=== PATIENT | female | born 1935 | race Caucasian/White ===

== ENCOUNTER 2016-06-22 18:24 | Emergency (ER) | payer MEDICARE, MEDICAID ==
[~2016-06-22] VITALS: Ht 162.6 cm; Wt 58.5 kg
[~2016-06-22 18:24] MED LIST: COLACE100 M1 PO; COZAAR25 MG PO; GLUCOTROL5 MG PO; NEURONTIN100 MG PO; NORCO 5/325 MG1 TAB PO; ORETIC25 MG PO; PRAVACHOL10 MG PO; VALIUM2 M1 PO
[2016-06-22 18:42] VITALS: BP 134/70
--- NOTE | 2016-06-22 18:51 | NUR ---
SEEN BY DR. CAH. TO [facility]PRE[facility] PER ERMD
--- NOTE | 2016-06-22 18:59 | NUR ---
[place] PD WITH PATIENT
--- NOTE | 2016-06-22 20:00 | NUR ---
BIB WHEELCHAIR TO ER OF1
--- NOTE | 2016-06-22 20:11 | NUR ---
Patient being evaluated by physician.
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
--- NOTE | 2016-06-22 20:20 | NUR ---
Patient discharged with v/s stable. Written and verbal after care instructions given and explained. Patient alert, oriented and verbalized understanding of instructions. Wheel Chair Assisted with to car. All questions addressed prior to discharge. ID band removed. Patient advised to follow up with PMD. Rx of NAPROSYN 500 MG given. Patient educated on indication of medication including possible reaction and side effects. Opportunity to ask questions provided and answered. D/C BY DR. MARCUS.
[2016-06-22 20:21] VITALS: BP 132/71
[2016-09-06] MEDS ORDERED: MAXZIDE 25 MG-31 TA1 PO (11:38)
[2016-09-06] MEDS ORDERED: NEURONTIN100 M1 PO (11:38)
[2016-09-06] MEDS ORDERED: NORTRIPTYLINE H PO (11:38)
[2016-09-06] MEDS ORDERED: VALIUM2 MG PO (11:38)
[2016-09-06] MEDS ORDERED: PRAVACHOL PO (11:38)
[2016-09-06] MEDS ORDERED: COZAAR50 M1 PO (11:38)
[2016-09-06] MEDS ORDERED: D3-20002000 UNIT PO (11:38)
[2016-09-06] MEDS ORDERED: ZYLOPRIM100 M1 PO (11:38)
== END 2016-06-22 20:20 | disposition home or self-care (01) ==
LOC: MED 18:24
DX: S63.501A Unspecified sprain of right wrist, initial encounter (principal); S53.401A Unspecified sprain of right elbow, initial encounter; E11.9 Type 2 diabetes mellitus without complications; E78.00 Pure hypercholesterolemia, unspecified; I10 Essential (primary) hypertension; Z90.49 Acquired absence of other specified parts of digestive tract; V89.2XXA Person injured in unspecified motor-vehicle accident, traffic, initial encounter; Y93.89 Activity, other specified; Y92.89 Other specified places as the place of occurrence of the external cause; Y99.8 Other external cause status

== ENCOUNTER 2016-07-15 10:59 | Emergency (ER) | payer MEDICARE ==
[~2016-07-15] VITALS: Ht 160 cm; Wt 58.5 kg
[2016-07-15 11:22] VITALS: BP 106/60
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
--- NOTE | 2016-07-15 13:13 | NUR ---
PATIENT LEFT WITHOUT BEING SEEN BY THE ER DOCTOR
[2016-09-06] MEDS ORDERED: VALIUM2 MG PO (11:38)
[2016-09-06] MEDS ORDERED: ZYLOPRIM100 M1 PO (11:38)
[2016-09-06] MEDS ORDERED: COZAAR50 M1 PO (11:38)
[2016-09-06] MEDS ORDERED: D3-20002000 UNIT PO (11:38)
[2016-09-06] MEDS ORDERED: MAXZIDE 25 MG-31 TA1 PO (11:38)
[2016-09-06] MEDS ORDERED: PRAVACHOL PO (11:38)
[2016-09-06] MEDS ORDERED: NORTRIPTYLINE H PO (11:38)
[2016-09-06] MEDS ORDERED: NEURONTIN100 M1 PO (11:38)
== END 2016-07-15 13:13 | disposition left against medical advice (07) ==
LOC: MED 10:59
DX: M54.2 Cervicalgia (principal); Z53.21 Procedure and treatment not carried out due to patient leaving prior to being seen by health care provider

== ENCOUNTER 2016-08-05 09:00 | Emergency (ER) | payer MEDICARE, OTHER ==
[~2016-08-05] VITALS: Ht 160 cm; Wt 59.4 kg
[~2016-08-05 09:00] MED LIST changes: -COLACE100 M1 PO; -COZAAR25 MG PO; +DOCU-67 PO; +GLIP5TAB4 PO; -GLUCOTROL5 MG PO; +HYDR-4446 PO; -NEURONTIN100 MG PO; -NORCO 5/325 MG1 TAB PO; -ORETIC25 MG PO; -PRAVACHOL10 MG PO; -VALIUM2 M1 PO
[2016-08-05 09:28] VITALS: BP 123/66
--- NOTE | 2016-08-05 10:06 | NUR ---
Pt w/c assisted to bed 8.
--- NOTE | 2016-08-05 10:19 | NUR ---
L/S XR ORDERED BY JUSTINE
--- NOTE | 2016-08-05 10:20 | NUR ---
Patient taken to x-ray via w/c.
--- NOTE | 2016-08-05 10:39 | NUR ---
Patient returned from x-ray and placed back into bed 6.
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
--- NOTE | 2016-08-05 11:25 | NUR ---
Patient found trying to get out of bed. Pt states "I just want to go home. I will go see my own doctor." Patient instructed to not get out of bed. Pt insisting to get out bed. Side rails are up. Dr. Yeh made aware.
--- NOTE | 2016-08-05 11:30 | NUR ---
Patient being evaluated by Dr. Yeh at bedside.
[2016-08-05 11:40] VITALS: BP 167/79
--- NOTE | 2016-08-05 11:40 | NUR ---
Patient discharged with v/s stable. Written and verbal after care instructions given and explained. Patient verbalized understanding. Wheel Chair Assisted with to home. All questions addressed prior to discharge. Advised to follow up with PMD.
--- NOTE | 2016-08-05 11:40 | NUR ---
Chart checked and completed. The patient's care was reviewed and supervised by Donell Hammer RN.
== END 2016-08-05 11:40 | disposition home or self-care (01) ==
LOC: MED 09:00
DX: M54.5 Low back pain (principal); E11.9 Type 2 diabetes mellitus without complications; I10 Essential (primary) hypertension; E78.00 Pure hypercholesterolemia, unspecified; Z95.1 Presence of aortocoronary bypass graft; Z98.890 Other specified postprocedural states
CPT/HCPCS: 72110; 81002; 99284

== ENCOUNTER 2016-09-06 11:25 | Observation (INO) | payer MEDICARE, OTHER ==
[~2016-09-06] VITALS: Ht 160 cm; Wt 59.0 kg
--- NOTE | 2016-09-06 00:25 | NUR ---
VITAL SIGNS STABLE, NO SOB OR SIGN OF DISTRESS, BS CHECK 159, CALL LIGHT WITHIN REACH WILL CONTINUE TO MONITOR. Addendum: 09/07/16 at 0454 by Michelle Corona RN WRONG DATE 09/07/16 @0025
--- NOTE | 2016-09-06 11:25 | NUR ---
Patient BIBA ACLS, transferred to bed 3. RN evaluating patient at bedside.
[2016-09-06 11:28] VITALS: BP 165/85
--- NOTE | 2016-09-06 11:30 | NUR ---
PT BIBA FOR EVALUATION OF LOW BLOOD SUGAR. PER MEDIC PT BLOOD SUGAR AT HOME 42, IV STARTED AND 1 BAG D10 ADMINISTERED IN FIELD W/BLOOD SUGAR BACK UP TO 240. BLOOD SUGAR UPON ARRIVAL TO ER 174. HX DM, HTN, ANXIETY.DENIES N/V/D; SKIN IS PINK/WARM/DRY; AAOX4 WITH EVEN AND STEADY GAIT; LUNGS CLEAR BL; HR EVEN AND REGULAR; PT DENIES ANY FEVER, CP, SOB, OR COUGH AT THIS TIME; PATIENT STATES PAIN OF 0/10 AT THIS TIME; VSS; PATIENT POSITIONED FOR COMFORT; HOB ELEVATED; BEDRAILS UP X2; BED DOWN. ER MD MADE AWARE OF PT STATUS.
[2016-09-06] MEDS ORDERED: GABA100C PO (11:38)
[2016-09-06] MEDS ORDERED: [UNRECOGNIZED DRUG - CODE] PO (11:38)
[2016-09-06] MEDS ORDERED: [UNRECOGNIZED DRUG - CODE] PO (11:38)
[2016-09-06] MEDS ORDERED: NORT10CA PO (11:38)
[2016-09-06] MEDS ORDERED: ALLO100T21 PO (11:38)
[2016-09-06] MEDS ORDERED: PRAV10TA21 PO (11:38)
[2016-09-06] MEDS ORDERED: LOSA50TA1 PO (11:38)
[2016-09-06] MEDS ORDERED: DIAZ2TAB6 PO (11:38)
[2016-09-06 12:20] LABS: BASOPHILS # (AUTO) 0.1 K/uL (0.00-0.22); BASOPHILS % (AUTO) 0.9 % (0.0-2.0); EOSINOPHILS # (AUTO) 0.1 K/uL (0-0.4); EOSINOPHILS % (AUTO) 0.9 % (0.0-4.0); HEMATOCRIT 33.7 % (36-48); HEMOGLOBIN 11.3 g/dL (12.0-16.0); LYMPHOCYTES # (AUTO) 1.2 K/uL (2.5-16.5); LYMPHOCYTES % (AUTO) 16.4 % (20.5-51.1); MEAN CORPUSCULAR HEMOGLOBIN 31 pg (27-31); MEAN CORPUSCULAR HGB CONC 33 g/dL (33-37); MEAN CORPUSCULAR VOLUME 93 fL (80-94); MONOCYTES # (AUTO) 0.4 K/uL (0.8-1.0); NEUTROPHILS # (AUTO) 5.6 K/uL (1.8-7.7); NEUTROPHILS % (AUTO) 76.8 % (42.2-75.2); PLATELET COUNT (AUTO) 172 K/uL (140-450); RED BLOOD CELL COUNT(AUTO) 3.63 MIL/uL (4.20-5.40); RED CELL DISTRIBUTION WIDTH 12.2 % (11.6-13.7); WHITE BLOOD COUNT (AUTO) 7.4 K/uL (4.8-10.8)
[2016-09-06 12:44] LABS: ALANINE AMINOTRANSFERASE 25 U/L (12-78); ALBUMIN 3.9 g/dL (3.4-5.0); ALKALINE PHOSPHATASE 65 U/L (46-116); ASPARTATE AMINOTRANSFERASE 18 U/L (15-37); CALCIUM 9.3 mg/dL (8.5-10.1); CARBON DIOXIDE 27.9 mmol/L (21-32); CREATININE 1.4 mg/dL (0.6-1.3); GLUCOSE 108 mg/dL (74-106); TOTAL BILIRUBIN 0.3 mg/dL (0.0-1.0); TOTAL PROTEIN, SERUM 7.7 g/dL (6.4-8.2); UREA NITROGEN, BLOOD 47 mg/dL (7-18)
[2016-09-06 13:20] LABS: ANION GAP 12.7 (8-16); CHLORIDE 104 mmol/L (98-107); POTASSIUM 4.6 mmol/L (3.5-5.1); SODIUM SERUM 140 mmol/L (136-145)
--- NOTE | 2016-09-06 13:25 | NUR ---
PER FIRST COAT OPERATOR SHWETA AT BEDSIDE REQUESTED TO BE CALLED/NOTIFED WHEN THE PT WILL BE DC FOR PICKUP
[2016-09-06 13:27] LABS: APPEARANCE,URINE CLEAR (CLEAR); BILIRUBIN,URINE NEGATIVE (NEGATIVE); BLOOD, URINE TRACE-I (NEGATIVE); COLOR,URINE YELLOW (YELLOW); LEUKOCYTE ESTERASE ,URINE NEGATIVE (NEGATIVE); NITRITE, URINE NEGATIVE (NEGATIVE); PROTEIN,URINE NEGATIVE (NEGATIVE); UGLUCOSE NEGATIVE (NEGATIVE); UROBILINOGEN,URINE 0.2 EU/dL (0.2 - 1)
[2016-09-06 13:47] LABS: BACTERIA,URINE OCCASSIONAL /HPF (None Seen); MUCUS,URINE 1+ /LPF (None Seen); WBC,URINE 0-5 /HPF (0-5)
--- NOTE | 2016-09-06 13:58 | NUR ---
BS CHECKED 33. RECHECKED 30. ERMD MADE AWARE. PATIENT AWAKE ALERT ORIENTED.CONVERSING.NO DIAPHORESIS.NO NAUSEA
--- NOTE | 2016-09-06 14:00 | NUR ---
1 AMP.D50 IVP GIVEN TOLERATED. CONTINUE TO MONITOR
[2016-09-06] MEDS ORDERED: DEXTROSE 50% 50 ML SYR IVP ONE ×4 (14:07→21:06)
--- NOTE | 2016-09-06 14:18 | NUR ---
AAO PT, ABLE TO ANSWER QUESTIONS APPROPRIATELY, NOTIFIED OF LUNCH ORDERED
--- NOTE | 2016-09-06 15:15 | NUR ---
AAO PT CONSUMED 100% OF LUNCH PROVIDED, CONVERSING WITH BROTHER AT BEDSIDE IN FULL SENTENCES, ANSWER QUESTIONS APPROPRIEATELY, BS 159, DR MCINTYRE NOTIFIED, WILL CONTINUE TO MONITOR
--- NOTE | 2016-09-06 17:05 | NUR ---
CALLED MOLD BURNER SHWETA FOR MEDICATION VERIFICATION, WILL CALL PT'S BROTHER AND FOR VERIFICATION, PROVIDED WITH ER NUMBER FOR CALL BACK
--- NOTE | 2016-09-06 18:01 | NUR ---
PT ASSISTED VIA WHEEL CHAIR TO THE RESTROOM
--- NOTE | 2016-09-06 18:13 | NUR ---
Patient will be admitted to care of DR DELAROSA. Admited to TELE. Will go to room 110B. Belongings list completed. Report to RANGEL DAI.
--- NOTE | 2016-09-06 19:30 | NUR ---
PATIENT ADMITTED TO UNIT FROM ED, PATIENT ARRIVED VIA GURNEY, PATIENT AAOX4 ON ROOM AIR, NO SOB OR SIGN OF DISTRESS AT THIS TIME. PATIENT ORIENTED TO THE ROOM AND CALL LIGHT, PATIENT DENIES PAIN AT THIS TIME, IV TO LEFT AC PATENT AND INTACT, SKIN INTACT, VITAL SIGNS STABLE, DISCUSSED PLAN OF CARE WITH PATIENT , PATIENT VERBALIZED UNDERSTANDING, CALL LIGHT WITHIN REACH. WILL CONTINUE TO MONITOR.
[2016-09-06] MEDS ORDERED: BLOOD GLUCOSE MONITORING 1 DEV DEV FS SCH (19:40)
[2016-09-06] MEDS ORDERED: ACETAMINOPHEN EXTRA STRENGTH 500 MG TAB PO PRN (19:40)
--- NOTE | 2016-09-06 19:55 | NUR ---
CALLED EVA CALVERT FOR ADMIT ORDERS, RECEIVED ORDERS TO PUT PATIENT ON OBSERVATION MED-SURG, ACCU CHECKS Q1HR UNTIL BLOOD SUGAR >80 TWICE. AFTER THAT ACCU CHECK QACHS, MECHANICAL SOFT DIET, HEPLOCK IV, IF SUGAR DROP BELOW [address] REYES WILKES AT THIS TIME, AND BATHROOM PRIVILEGES. WILL F/U WITH ORDERS.
[2016-09-06 20:00] VITALS: BP 126/73
[2016-09-06] MEDS ORDERED: DEXT 5% / NACL 0.45% 1,000 ML IV SCH (21:05)
--- NOTE | 2016-09-06 21:28 | NUR ---
PATIENT'S BLOOD SUGAR 21 PATIENT WAS SLURRING HER WORDS, GAVE PATIENT 3 BOXES ORANGE JUICE, CHARGE NURSE CHERYL CALLED DR DELAROSA FOR ORDER TO GIVE D50, ORDER RECEIVED AND ADMINISTERED, ALONG WITH ORDER TO START IV FLUIDS OF D5 .45 NS AT 80 CC/ HR, ORDERS FOLLOWED THROUGH, RECHECKED PATIENT BLOOD SUGAR, WAS 162, PATIENT SPEAKING WELL, NO SIGN OF DISTRESS, SITTING UP IN BED WILL CONTINUE TO MONITOR PATIENT.
--- NOTE | 2016-09-06 22:25 | NUR ---
BS CHECK 162, NO SIGN OF DISTRESS.
--- NOTE | 2016-09-06 23:25 | NUR ---
BS CHECK 154
[2016-09-07] VITALS: BP 110/64
--- NOTE | 2016-09-07 00:30 | NUR ---
VITAL SIGNS STABLE, NO SIGN OF DISTRESS, BS 159, CALL LIGHT WITHIN REACH. WILL CONTINUE TO MONITOR
--- NOTE | 2016-09-07 02:30 | NUR ---
PATIENT SLEEPING, NO SIGN OF DISTRESS, CALL LIGHT WITHIN REACH. WILL CONTINUE TO MONITOR.
--- NOTE | 2016-09-07 04:30 | NUR ---
ASSISTED PATIENT UP TO THE RESTROOM , NO SIGN OF DISTRESS, CALL LIGHT WITHIN REACH. WILL CONTINUE TO MONITOR
--- NOTE | 2016-09-07 07:00 | NUR ---
SPOKE WITH DR DELAROSA AND GAVE UPDATE OF PATIENT, RECEIVED VERBAL ORDERS TO DC IVF D5 .45NS, CONTINUE ACCU CHECKS Q1HR UNTIL BLOOD SUGAR IS >90 TWO TIMES, AFTER THAT TO CHANGE ACCU CHECKS TO QACHS BUT TO CALL MD FIRST. WILL ENDORSE TO NEXT SHIFT.
[2016-09-07] MEDS ORDERED: BLOOD GLUCOSE MONITORING 1 DEV DEV FS SCH (07:05)
[2016-09-07] MEDS ORDERED: BLOOD GLUCOSE MONITORING 1 DEV DEV FS PRN (07:11)
[2016-09-07] MEDS ORDERED: HYDROcodone/APAP 5/325 MG 1 TAB TAB PO PRN (07:20)
--- NOTE | 2016-09-07 07:30 | NUR ---
ENDORSED PATIENT TO DAY RN AT BEDSIDE, PATIENT IN STABLE CONDITION
--- NOTE | 2016-09-07 07:40 | NUR ---
REPORT RECEIVED FROM ENDOSCOPY REGISTERED NURSE, PT AAOX4, RESP EVEN UNLABORED, RESTING COMFORTABLY IN NAD, DENIES PAIN OR DISCOMFORT, PLAN OF CARE DISCUSSED, FINGER STICK BLOOD SUGAR 90, BREAKFAST PROVIDED, CALL CRUZ WITHIN REACH, SIDE RAILS UP, BED LOCKED IN LOW POSTION, WILL CONTINUE TO MONITOR
--- NOTE | 2016-09-07 07:40 | NUR ---
PER REPORT FROM TYSON MULTANI, IVF D5 1/2NS STOPPED AT [address]AROSA, 780ML INFUSED, PT'S IV NOW SL'D.
[2016-09-07] MEDS: BLOOD GLUCOSE MONITORING 1 DEV DEV FS SCH ×3 (07:53→16:50)
[2016-09-07 08:00] VITALS: BP 139/74
--- NOTE | 2016-09-07 08:57 | NUR ---
PATIENT HAS BEEN SCREENED AND CATEGORIZED HIGH NUTRITION RISK. PATIENT WILL BE SEEN WITHIN 1-2 DAYS OF ADMISSION. 09/07/16-09/08/[address]
[2016-09-07] MEDS ORDERED: TRIAMTERENE/HCTZ 37.5/25 MG 1 TAB PO SCH (09:00)
[2016-09-07] MEDS ORDERED: ALLOPURINOL 100 MG TAB PO SCH (09:00)
[2016-09-07] MEDS ORDERED: CHOLECALCIFEROL 1,000 IU TAB PO SCH (09:00)
[2016-09-07] MEDS ORDERED: LOSARTAN 50 MG TAB PO SCH (09:00)
--- NOTE | 2016-09-07 10:00 | NUR ---
DR DELAROSA CALLED BY CHARGE NURSE TO NOTIFY HIM OF BLOOD SUGAR LEVELS; @ @[phone] @[id number] PER DR DELAROSA, REPEAT BLOOD SUGAR Q2HRS
--- NOTE | 2016-09-07 12:30 | NUR ---
PT FINISHED DINNER, PT AWAKE ALERT, RESTING QUIETLY IN NAD, RESP EVEN UNLABORED, DENIES PAIN OR DISCOMFORT, CALL CRUZ WITHIN REACH, SIDE RAILS UP X2, BED LOCKED IN LOW POSITION, WILL CONTINUE TO MONITOR.
--- NOTE | 2016-09-07 14:37 | NUR ---
FINGER STICK GLUCOSE 117, PT AWAKE ALERT, RESTING QUIETLY IN NAD, WATCHING TV, DENIES PAIN OR DISCOMFORT,DENIES ANY IMMEDIATE NEEDS, CALL CRUZ WITHIN REACH, SIDE RAILS UP, BED LOCKED IN LOW POSITION, WILL CONTINUE TO MONITOR.
[2016-09-07 16:01] VITALS: BP 140/68
--- NOTE | 2016-09-07 16:30 | NUR ---
DR DELAROSA CALLED TO GET UPDATES ON PT, PER DR DELAROSA IF 1630 BLOOD GLUCOSE >100 PT MAY DC HOME, TO F/U WITH DR DELAROSA WITHIN 1WK SCHEDULED AT DAY [facility] [phone], DISCONTINUE GLIPIZIDE.
--- NOTE | 2016-09-07 17:00 | NUR ---
PT'S MRI ASSISTANT SHWETA DEMARCO CONTACTED, SHE WILL COME PICK HER UP TO DC HOME.
--- NOTE | 2016-09-07 17:25 | NUR ---
DC INSTRUCTION GIVEN AND EXPLAINED TO PT, PT VERBALIZED FULL UNDERSTANDING, PT AWARE TO STOP TAKING GLIPIZIDE, PT AWARE TO F/U WITH DR DELAROSA WITHIN 1WEEK, NEW OFFICE ADDRESS AND NUMBER FOR DR DELAROSA PROVIDED, IV DC'D, CATH TIP INTACT, BLEEDING CONTROLLED, PT MICHELLE WELL, AWAITING MS. SHWETA DEMARCO FOR DC HOME.
--- NOTE | 2016-09-07 18:03 | NUR ---
DC HOME NOW WITH CHEMICAL LABORATORY SCIENTIST SHWETA DEMARCO, ESCORTED OUT IN WHEELCHAIR.
[2016-09-07] MEDS ORDERED: GABAPENTIN 100 MG CAP PO SCH (21:00)
[2016-09-07] MEDS ORDERED: SIMVASTATIN 10 MG TAB PO SCH (21:00)
== END 2016-09-07 18:00 | disposition home or self-care (01) ==
LOC: MED 11:27 → MTU 19:54
PROVIDERS: ADMIT Family Medicine; ATTEND Family Medicine
DX: E11.649 Type 2 diabetes mellitus with hypoglycemia without coma (principal); T38.3X5A Adverse effect of insulin and oral hypoglycemic [antidiabetic] drugs, initial encounter; Y92.89 Other specified places as the place of occurrence of the external cause; N18.4 Chronic kidney disease, stage 4 (severe); E83.42 Hypomagnesemia; E11.22 Type 2 diabetes mellitus with diabetic chronic kidney disease; I12.9 Hypertensive chronic kidney disease with stage 1 through stage 4 chronic kidney disease, or unspecified chronic kidney disease; D64.9 Anemia, unspecified; E03.9 Hypothyroidism, unspecified; E78.5 Hyperlipidemia, unspecified; M19.90 Unspecified osteoarthritis, unspecified site; M81.0 Age-related osteoporosis without current pathological fracture; Z85.3 Personal history of malignant neoplasm of breast; Z85.42 Personal history of malignant neoplasm of other parts of uterus; Z90.10 Acquired absence of unspecified breast and nipple; Z90.710 Acquired absence of both cervix and uterus
CPT/HCPCS: 36415; 80053; 81001; 82948; 85025; 87081; 96361; 96374; 96376; 99285; G0378

== ENCOUNTER 2017-05-29 10:29 | Emergency (ER) | payer MEDICARE, OTHER ==
[~2017-05-29] VITALS: Ht 162.6 cm; Wt 53.6 kg
[~2017-05-29 10:29] MED LIST changes: +ACET-8386 PO; +ALLO100T21 PO; +DIAZ2TAB6 PO; -DOCU-67 PO; +GABA100C PO; -GLIP5TAB4 PO; -HYDR-4446 PO; +LOSA50TA1 PO; +NORT10CA PO; +PRAV10TA21 PO; +[UNRECOGNIZED DRUG - CODE] PO; +[UNRECOGNIZED DRUG - CODE] PO
[2017-05-29 11:16] VITALS: BP 109/43
--- NOTE | 2017-05-29 11:20 | NUR ---
PT AMBULATES BACK TO THE LOBBY
--- NOTE | 2017-05-29 11:50 | NUR ---
PATIENT AMB. TO CHAIR #C
--- NOTE | 2017-05-29 11:56 | NUR ---
PT COMES TO ER WITH C/O INTERMITTENT PRODUCTIVE COUGH X 2 DAYS, YELLOW PHLEGM. DENIES ANY FEVERS/CHILLS. RESP EVEN AND UNLABORED, IN NAD. LS-CLR PARAS. AFEBRILE AT THIS TIME, DENIES ANY CP. SKIN W/D/I. DENIES ANY N/V/D. WAIITNG FOR ER MD DOUGLAS.
--- NOTE | 2017-05-29 12:35 | NUR ---
DR CRUZ NOTIFIED THAT PT LWBS.
--- NOTE | 2017-05-29 12:35 | NUR ---
PATIENT LEFT WITHOUT BEING SEEN BY DR. GROVES. NO FURTHER CARE PROVIDED FOR PATIENT.
== END 2017-05-29 12:30 | disposition left against medical advice (07) ==
LOC: MED 10:29
DX: R05 Cough (principal); J34.89 Other specified disorders of nose and nasal sinuses; Z53.21 Procedure and treatment not carried out due to patient leaving prior to being seen by health care provider

== ENCOUNTER 2017-05-31 08:05 | Emergency (ER) | payer MEDICARE, OTHER ==
[~2017-05-31] VITALS: Ht 162.6 cm; Wt 53.5 kg
--- NOTE | 2017-05-31 08:12 | NUR ---
PT W/C ASSISTED TO BED 2.
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
[2017-05-31 08:14] VITALS: BP 125/70
--- NOTE | 2017-05-31 08:24 | NUR ---
ER MD DR. GROVES EVALUATING PT AT BEDSIDE.
--- NOTE | 2017-05-31 08:30 | NUR ---
influenza specimen obtained and given to lab.
[2017-05-31] MEDS ORDERED: ACETAMINOPHEN 325 MG TAB PO ONE (09:40)
[2017-05-31 10:23] VITALS: BP 125/70
--- NOTE | 2017-05-31 10:24 | NUR ---
Patient discharged with v/s stable. Written and verbal after care instructions given and explained. Patient alert, oriented and verbalized understanding of instructions. Ambulatory with steady gait. All questions addressed prior to discharge. ID band removed. Patient advised to follow up with PMD. Rx of Zofran ODT, Tamiflu, and Naprosyn given. Patient educated on indication of medication including possible reaction and side effects. Opportunity to ask questions provided and answered.
== END 2017-05-31 10:24 | disposition home or self-care (01) ==
LOC: MED 08:05
DX: B34.9 Viral infection, unspecified (principal); E11.9 Type 2 diabetes mellitus without complications; I10 Essential (primary) hypertension; Z90.710 Acquired absence of both cervix and uterus
CPT/HCPCS: 36415; 71045; 87804; 93005; 99285; Q0092

== ENCOUNTER 2017-06-04 09:03 | Inpatient (IN) | payer MEDICARE, OTHER ==
[~2017-06-04] VITALS: Ht 160 cm; Wt 56.2 kg
--- NOTE | 2017-06-04 09:05 | NUR ---
PT BIBA TO BED 2
[2017-06-04 09:07] VITALS: BP 164/78
--- NOTE | 2017-06-04 09:19 | NUR ---
ASSUMED PATIENT CARE, CONCUR WITH TRIAGE. NURSING ASSESSMENT COMPLETED.
[2017-06-04] MEDS ORDERED: CEFEPIME 2,000 MG in DEXTROSE 5% 100 ML IV ONE (10:00)
[2017-06-04 10:31] LABS: HEMATOCRIT 31.8 % (36-48); HEMOGLOBIN 10.6 g/dL (12.0-16.0); MEAN CORPUSCULAR HEMOGLOBIN 30 pg (27-31); MEAN CORPUSCULAR HGB CONC 34 g/dL (33-37); MEAN CORPUSCULAR VOLUME 90 fL (80-94); PLATELET COUNT (AUTO) 253 K/uL (140-450); RED BLOOD CELL COUNT(AUTO) 3.53 MIL/uL (4.20-5.40); RED CELL DISTRIBUTION WIDTH 12.9 % (11.6-13.7); WHITE BLOOD COUNT (AUTO) 18.7 K/uL (4.8-10.8)
[2017-06-04] MEDS ORDERED: CEFEPIME 2,000 MG VIAL IV ONE (10:32)
[2017-06-04 10:44] LABS: BASOPHILS % (MANUAL) 0 % (0-2); EOSINOPHILS % (MANUAL) 0 % (0-4); LYMPHOCYTES % (MANUAL) 6 % (20-46); MONOCYTES % (MANUAL) 2 % (5-12)
[2017-06-04 10:46] LABS: PROTHROMBIN TIME 11.5 secs (10.8-13.4)
[2017-06-04 10:49] LABS: ALBUMIN 2.5 g/dL (3.4-5.0); ANION GAP 18.6 (8-16); ASPARTATE AMINOTRANSFERASE 26 U/L (15-37); CHLORIDE 102 mmol/L (98-107); CREATININE 2.5 mg/dL (0.6-1.3); GLUCOSE 191 mg/dL (74-106); LIPASE 142 U/L (73-393); POTASSIUM 4.6 mmol/L (3.5-5.1); SODIUM SERUM 139 mmol/L (136-145); TOTAL BILIRUBIN 1.1 mg/dL (0.0-1.0)
[2017-06-04 10:55] LABS: UREA NITROGEN, BLOOD 63 mg/dL (7-18)
[2017-06-04 11:16] LABS: CREATINE KINASE MB 1.2 ng/mL (0-3.6)
--- NOTE | 2017-06-04 11:45 | NUR ---
DIAGNOSTIC TESTING COMPLETED, AWAIT RESULTS. MAINTAINED ON SAFETY PRECAUTIONS, MEDICATED WITH IV ANTIBIOTICS PER ORDER AFTER BLOOD CULTURES WERE DRAWN. STRAIGHT CATH OF URINE DONE BY RANGEL FRANCES.
[2017-06-04 11:46] LABS: BILIRUBIN,URINE NEGATIVE (NEGATIVE); BLOOD, URINE NEGATIVE (NEGATIVE); COLOR,URINE YELLOW (YELLOW); LEUKOCYTE ESTERASE ,URINE TRACE (NEGATIVE); NITRITE, URINE POSITIVE (NEGATIVE); UGLUCOSE NEGATIVE (NEGATIVE)
[2017-06-04 11:56] LABS: RBC,URINE 0-5 (RARE) /HPF (0-5)
[2017-06-04 11:58] LABS: URINE AMORPHOUS URATE 1+ /HPF (None Seen)
[2017-06-04 12:15] LABS: APPEARANCE,URINE HAZY (CLEAR)
--- NOTE | 2017-06-04 15:25 | NUR ---
DISPO AND MEDICAL DECISION MAKING, INPATIENT ADMISSION FOR FURTHER MANAGEMENT. PATIENT CARE REPORT GIVEN TO YOVANY, CONTINUITY OF CARE ENDORSED.
--- NOTE | 2017-06-04 16:00 | NUR ---
RECEIVED PT FROM ER NURSE. PT IS AMB. BROTHER IS AT BEDSIDE. PT IS AAOX4, NO S/S OF ACUTE DISTRESS, VITALS TAKEN, C/O OF COUGH X3 DAYS AND GENERALIZED WEAKNESS. DX OF UTI. DENIES PAIN. NONBLANCHABLE REDNESS OVER THE SACRAL. OTHERWISE SKIN IS INTACT. INITIAL ASSESSMENT DONE, BOWEL SOUNDS ACTIVE, LUNG SOUNDS WITH MINOR WHEEZING AND RHONCHI, PLACED PT ON TELE, MRSA DONE. UPDATED THE BOARD. DISCUSSED PLAN OF CARE, PT VERBALIZED UNDERSTANDING. ORIENTED PT TO THE ROOM, FALL RISK SIGN POSTED, FALL WRIST BAND AND SOCKS APPLIED. WILL CONTINUE TO MONITOR.
[2017-06-04] MEDS ORDERED: HYDROcodone/APAP 5/325 MG 1 TAB TAB PO PRN (16:05)
[2017-06-04 16:30] VITALS: BP 108/52
[2017-06-04] MEDS ORDERED: DEXTROSE 50% 50 ML SYR IVP PRN (16:30)
--- NOTE | 2017-06-04 16:30 | NUR ---
NEW IV INSERTED ON R FA 22G. HELPED PT TO GET UP TO BATHROOM TO URINATE.
[2017-06-04] MEDS: POTASSIUM CHL 10 MEQ/D5-1/2NS 1,000 ML IV SCH (17:02)
[2017-06-04] MEDS: BLOOD GLUCOSE MONITORING 1 DEV DEV FS SCH ×2 (17:15→20:23)
[2017-06-04] MEDS: INSULIN LISPRO SLIDING SCALE 100 UNITS/ML VIAL SUBQ PRN ×2 (18:18→20:25)
--- NOTE | 2017-06-04 19:30 | NUR ---
ENDORSED PT TO SENIOR DATA DEVELOPER RN. PT IN STABLE CONDITION.
--- NOTE | 2017-06-04 19:31 | NUR ---
PATIENT REPORT RECEIVED FROM MORNING NURSE AT BEDSIDE. PATIENT IS AWAKE, ALERT AND ORIENTED. NO SIGNS AND SYMPTOMS OF DISTRESS NOTED. NO COMPLAINTS OF PAIN AT THIS TIME. IV SITE NOTED ON RIGHT FOREARM, IVF INFUSING WELL. PLAN OF CARE DISCUSSED WITH PATIENT. PATIENT VERBALIZED UNDERSTANDING. BED IN LOWEST POSITION, SIDE RAILS UP AND CALL LIGHT WITHIN REACH. WILL CONTINUE TO MONITOR.
[2017-06-04 20:00] VITALS: BP 116/56
--- NOTE | 2017-06-04 20:00 | NUR ---
AMBULATED WITH PATIENT TO RESTROOM. PATIENT VOIDED. NO SIGNS AND SYMPTOMS OF DISTRESS NOTED. WILL CONTINUE TO MONITOR.
[2017-06-04] MEDS: GABAPENTIN 100 MG CAP PO SCH (20:20)
[2017-06-04] MEDS: NORTRIPTYLINE 10 MG CAP PO SCH (20:20)
[2017-06-04] MEDS ORDERED: ALBUTEROL SULFATE/IPRATROPIU 3 ML SOL IH PRN (21:00)
[2017-06-04] MEDS: DIAZEPAM 2 MG TAB PO PRN (21:41)
--- NOTE | 2017-06-04 23:00 | NUR ---
ASSISTED PATIENT WITH BEDPAN. PATIENT VOIDED. PERICARE DONE. WILL CONTINUE TO MONITOR.
[2017-06-05] VITALS: BP 112/62
--- NOTE | 2017-06-05 03:00 | NUR ---
ASSISTED PATIENT WITH BEDPAN. PATIENT VOIDED. PERICARE DONE. WILL CONTINUE TO MONITOR.
[2017-06-05] MEDS: guaiFENesin DM 200/20 MG-10 ML 10 ML UDC PO PRN ×2 (03:11→15:47)
[2017-06-05 04:00] VITALS: BP 125/87
[2017-06-05] MEDS: POTASSIUM CHL 10 MEQ/D5-1/2NS 1,000 ML IV SCH (05:28)
[2017-06-05] MEDS: INSULIN LISPRO SLIDING SCALE 100 UNITS/ML VIAL SUBQ PRN ×5 (05:57→21:16)
--- NOTE | 2017-06-05 06:00 | NUR ---
ACCORDING TO SALES AND SERVICE REPRESENTATIVE. PATIENT VOMITED ON SHEET. NEW SHEETS GIVEN, PATIENT CLEANED. CHECKED ON PATIENT, PATIENT SAID SHE WAS OK AND DIDNT FEEL LIKE VOMITING ANYMORE. WILL CONTINUE TO MONITOR.
[2017-06-05] MEDS: BLOOD GLUCOSE MONITORING 1 DEV DEV FS SCH ×4 (06:31→21:17)
[2017-06-05 07:03] LABS: HEMATOCRIT 23.1 % (36-48); HEMOGLOBIN 7.9 g/dL (12.0-16.0); MEAN CORPUSCULAR HEMOGLOBIN 31 pg (27-31); MEAN CORPUSCULAR HGB CONC 34 g/dL (33-37); MEAN CORPUSCULAR VOLUME 91 fL (80-94); PLATELET COUNT (AUTO) 246 K/uL (140-450); RED BLOOD CELL COUNT(AUTO) 2.54 MIL/uL (4.20-5.40); RED CELL DISTRIBUTION WIDTH 13.1 % (11.6-13.7); WHITE BLOOD COUNT (AUTO) 17.7 K/uL (4.8-10.8)
[2017-06-05 07:13] LABS: ANION GAP 15.1 (8-16); CARBON DIOXIDE 25.1 mmol/L (21-32); CHLORIDE 102 mmol/L (98-107); CREATININE 2.3 mg/dL (0.6-1.3); POTASSIUM 5.2 mmol/L (3.5-5.1); SODIUM SERUM 137 mmol/L (136-145)
--- NOTE | 2017-06-05 07:15 | NUR ---
PATIENT REPORT GIVEN TO MORNING NURSE AT BEDSIDE. PATIENT IS IN STABLE CONDITION
--- NOTE | 2017-06-05 07:20 | NUR ---
RECEIVED REPORT FROM BARKING MACHINE FEEDER NURSE, PT IS RESTING IN BED, AAOX3, AMBULATES WITH ASSIST, PT HAS IV ON THE RIGHT FA, PATENT, INTACT, FLUSHING WELL, PT HAS NON BLANCHABLE SACRAL REDNESS, NO S/S OF RESPIRATORY DISTRESS OR DISCOMFORT NOTED, DISCUSSED PLAN OF CARE WITH PT, PT VERBALIZED UNDERSTANDING, CALL LIGHT WITHIN REACH, WILL CONTINUE TO MONITOR.
[2017-06-05 07:40] LABS: LYMPHOCYTES % (MANUAL) 5 % (20-46); MONOCYTES % (MANUAL) 5 % (5-12)
[2017-06-05 07:48] LABS: GLUCOSE 439 mg/dL (74-106); UREA NITROGEN, BLOOD 77 mg/dL (7-18)
[2017-06-05 08:00] VITALS: BP 98/56
--- NOTE | 2017-06-05 08:10 | NUR ---
PER DR. DELAROSA ORDER LANTUS SQ DAILY 10 UNITS, GIVE NOW AND GIVE HUMALOG 10 UNITS NOW.
[2017-06-05] MEDS: ALLOPURINOL 100 MG TAB PO SCH (08:30)
[2017-06-05] MEDS: INSULIN LANTUS 100 UNITS/ML 10 ML VIAL SUBQ SCH (08:34)
[2017-06-05] MEDS ORDERED: LOSARTAN 50 MG TAB PO SCH (09:00)
[2017-06-05] MEDS ORDERED: glipiZIDE 5 MG TAB PO SCH ×2 (09:00→16:30)
--- NOTE | 2017-06-05 10:06 | NUR ---
PATIENT HAS BEEN SCREENED AND CATEGORIZED HIGH NUTRITION RISK. PATIENT WILL BE SEEN WITHIN 1-2 DAYS OF ADMISSION. 06/04/17-06/05/[address]
--- NOTE | 2017-06-05 10:39 | NUR ---
PAGED DR. DELAROSA TO LET HIM KNOW THE PATIENT'S POTASSIUM LEVEL WAS 5.2 AND BUN WAS 77.
--- NOTE | 2017-06-05 11:50 | NUR ---
RECEIVED PHONE CALL FROM DR. DELAROSA. PER DR. DELAROSA, INSERT STEPHENS TO MEASURE OUTPUT, DC LOSARTAN AND D5 NACL/KLC AND START PT ON NS @ 100ML/HR.
[2017-06-05 12:00] VITALS: BP 95/47
--- NOTE | 2017-06-05 12:00 | NUR ---
STEPHENS CATHETER INSERTED, PT TOLERATED WELL.
[2017-06-05] MEDS: NACL 0.9% 1,000 ML IV SCH ×2 (12:43→22:10)
--- NOTE | 2017-06-05 12:46 | NUR ---
CALLED [facility] AND SPOKE WITH BREA. SHE SAID TO FAX REVIEW TO [facility], [phone] PHONE INOCENCIA [phone]. I ASKED HER FOR A LIST OF SNF'S AND HOME HEALTHS. I RECEIVED A CALL FROM EULALIO FROM [facility]. SHE WILL CALL ME BACK WHETHER THEY NEED REVIEW OR NOT, BUT SHE SAID TO FAX TO [facility]UL[facility]. SHE ALSO SAID [facility] IS RESPONSIBLE FOR SNF AND HOME HEALTH. PHONE [phone]
[2017-06-05 16:00] VITALS: BP 128/62
--- NOTE | 2017-06-05 16:08 | NUR ---
06/05/2017 RD INITIAL ASSESSMENT COMPLETED PT TO CONSUME >75% EST ENERGY AND PRO NEEDS WITHIN 2-3 DDAYS NUTRITION RELATED LABS WNL WITHIN 2-3 DAYS DIETITIAN WILL MONITOR PO INTAKE, NUTRITION-RELATED LABS TRENDING WNL, SKIN INTEGRITY, WEIGHTS, GI FUNCTION. DISCHARGE PLAN:ONGOING, PENDING CLINICAL COURSE. MALI BARROS RD
--- NOTE | 2017-06-05 19:12 | NUR ---
RECEIVED PATIENT LYING ON BED WITH IV ON RIGHT FA INFUSING WELL. FALL PRECAUTIONARY MEASURES SUCH LOW BED POSITION, CALL LIGHT WITHIN REACH. NO S/S OF DISTRESS. WILL CONTINUE TO MONITOR.
[2017-06-05 20:00] VITALS: BP 146/76
[2017-06-05] MEDS: GABAPENTIN 100 MG CAP PO SCH (20:38)
[2017-06-05] MEDS: NORTRIPTYLINE 10 MG CAP PO SCH (20:38)
--- NOTE | 2017-06-05 21:00 | NUR ---
SEEN ASLEEP ON BED. LOW BED POSITION, CALL LIGHT WITHIN REACH. NO S/S OF DISTRESS.
[2017-06-06] VITALS: BP 119/52
--- NOTE | 2017-06-06 00:10 | NUR ---
PATIENT HAS BOWEL MOVEMENT CHARACTERIZED BY LOOSE,BLACK AND LARGE AMOUNT OF STOOL. PATIENT WAS CLEANED AND PLACE IN COMFORTABLE POSITION. BED IN LOW POSITION, CALL LIGHTS WITHIN REACH. WILL CONTINUE TO MONITOR.
[2017-06-06] MEDS: NACL 0.9% 1,000 ML IV SCH ×3 (01:20→17:47)
[2017-06-06 04:00] VITALS: BP 101/56
[2017-06-06 06:50] LABS: BASOPHILS % (AUTO) 0.1 % (0.0-2.0); EOSINOPHILS % (AUTO) 0.2 % (0.0-4.0); LYMPHOCYTES # (AUTO) 1.1 K/uL (2.5-16.5); LYMPHOCYTES % (AUTO) 6.6 % (20.5-51.1); MEAN CORPUSCULAR HEMOGLOBIN 31 pg (27-31); MEAN CORPUSCULAR HGB CONC 34 g/dL (33-37); MEAN CORPUSCULAR VOLUME 91 fL (80-94); MONOCYTES # (AUTO) 0.6 K/uL (0.8-1.0); MONOCYTES % (AUTO) 3.4 % (1.7-9.3); NEUTROPHILS # (AUTO) 15.2 K/uL (1.8-7.7); NEUTROPHILS % (AUTO) 89.7 % (42.2-75.2); PLATELET COUNT (AUTO) 238 K/uL (140-450); RED BLOOD CELL COUNT(AUTO) 1.63 MIL/uL (4.20-5.40); RED CELL DISTRIBUTION WIDTH 12.9 % (11.6-13.7)
[2017-06-06 07:09] LABS: ANION GAP 14.1 (8-16); CARBON DIOXIDE 22.8 mmol/L (21-32); CHLORIDE 109 mmol/L (98-107); CREATININE 1.9 mg/dL (0.6-1.3); GLUCOSE 393 mg/dL (74-106); POTASSIUM 4.9 mmol/L (3.5-5.1); SODIUM SERUM 141 mmol/L (136-145)
[2017-06-06 07:14] LABS: UREA NITROGEN, BLOOD 103 mg/dL (7-18)
--- NOTE | 2017-06-06 07:25 | NUR ---
PT AWAKE, NO DISTRESS NOTED, BEDSIDE REPORT GIVEN TO RN SAMMIE FOR CONTINUITY OF CARE.
--- NOTE | 2017-06-06 07:30 | NUR ---
RECEIVED REPORT FROM AM NURSE AT BEDSIDE, PT IS AAOX4, ABLE TO FOLLOW COMMANDS AND MAKE NEEDS KNOW, GORGE PAIN, VSS. NO S/S OF DISTRESS, DIMINISHED LUNG SOUNDS, ON RA, SR ON TELE MONITOR, NPO AT THIS TIME, SOFT ABDOMEN WITH ACTIVE BOWEL SOUNDS, CONTINENT B&B'S, BLACK STOOL NOTED, STEPHENS CATHETER IN PLACE WITH CLEAR YELLOW URINE NOTED. SKIN IS INTACT, WARM AND DRY TO TOUCH, IV SITE TO RIGHT FOREARM RUNNING WITH NS AT 100ML/HR. GENERALIZED WEAKNESS NOTED. SAFETY MEASURES IN PLACE, CALL LIGHT WITHIN REACH. WILL CONTINUE TO MONITOR.
[2017-06-06] MEDS: INSULIN LISPRO SLIDING SCALE 100 UNITS/ML VIAL SUBQ PRN ×5 (07:39→20:54)
[2017-06-06] MEDS: BLOOD GLUCOSE MONITORING 1 DEV DEV FS SCH ×4 (07:43→20:55)
[2017-06-06 08:00] VITALS: BP 115/54
[2017-06-06 08:16] LABS: HEMOGLOBIN 5.1 g/dL (12.0-16.0)
[2017-06-06 08:17] LABS: HEMATOCRIT 14.8 % (36-48); WHITE BLOOD COUNT (AUTO) 16.9 K/uL (4.8-10.8)
--- NOTE | 2017-06-06 08:24 | NUR ---
CRITICAL LAB RESULT HGB 5.1, DR. DELAROSA MADE AWARE AND OBTAINED ORDER FOR BLOOD TRANSFUSION, INFORMED LAB TO PREPARE THE BLOOD.
[2017-06-06] MEDS: ALLOPURINOL 100 MG TAB PO SCH (09:00)
--- NOTE | 2017-06-06 09:00 | NUR ---
HOLD PO MEDICATION AT THIS TIME DUE TO PT IS NPO ORDERED.
[2017-06-06] MEDS: PANTOPRAZOLE 40 MG INJ VIAL IVP SCH (09:11)
[2017-06-06] MEDS: INSULIN LANTUS 100 UNITS/ML 10 ML VIAL SUBQ SCH (09:14)
--- NOTE | 2017-06-06 10:00 | NUR ---
OBTAINED EGD CONSENT AND BLOOD TRANSFUSION CONSENT FROM PT'S BROTHER, PT IS VERY WEAK, COULD NOT SIGN CONSENT AT THIS TIME, VERBALLY TOLD HER BROTHER TO SIGN FOR HER. DR. SHEEHAN NOTIFIED FOR THE CONSENT, INFORMED WILL DO EGD AROUND 1130.
[2017-06-06] MEDS ORDERED: MIDAZOLAM 2 MG/2 ML VIAL ONE (10:40)
[2017-06-06] MEDS ORDERED: fentaNYL 0.05 MG/ML VIAL ONE (10:40)
--- NOTE | 2017-06-06 11:30 | NUR ---
CALLED LAB, BLOOD IS NOT READY AT THIS TIME.
[2017-06-06 12:00] VITALS: BP 106/56
--- NOTE | 2017-06-06 12:00 | NUR ---
PT IS TRANSFERRED VIA BED TO OR FOR EGD PROCEDURE AT THIS TIME.
--- NOTE | 2017-06-06 12:58 | NUR ---
PT IS BACK TO ROOM, DROWSY NOTED, VSS, DENIES PAIN.
[2017-06-06] MEDS: SUCRALFATE 1 GM TAB PO SCH ×3 (13:30→20:47)
--- NOTE | 2017-06-06 13:30 | NUR ---
CALLED LAB, BLOOD IS NOT READY AT THIS TIME.
[2017-06-06] MEDS ORDERED: fentaNYL 0.05 MG/ML VIAL IVP ONE (13:45)
[2017-06-06] MEDS ORDERED: MIDAZOLAM 2 MG/2 ML VIAL IV ONE (13:45)
--- NOTE | 2017-06-06 14:05 | NUR ---
CALLED DR. EVA DELAROSA AND NOTIFIED REGARDING RENAL ULTRASOUND RESULTS AND TODAY'S BUN & CREATININE RESULTS. STATED THAT NO NEED FOR RENAL CONSULT AT THIS TIME, HE WILL CHECK PT'S LABS TOMORROW.
--- NOTE | 2017-06-06 14:08 | NUR ---
FAXED CONCURRENT REVIEW TO [facility] [phone] PHONE INOCENCIA [phone] SPOKE WITH INOCENCIA AT [facility]. I FAXED HER ALSO THE P.T. NOTES AND TOLD HER THAT SHE WILL PROBABLY NEED A SNF FOR P.T. SHE SAID SHE WOULD ARRANGE THE SNF.
[2017-06-06 14:22] LABS: HEMOGLOBIN 4.5 g/dL (12.0-16.0)
[2017-06-06 14:23] LABS: HEMATOCRIT 13.3 % (36-48)
--- NOTE | 2017-06-06 15:15 | NUR ---
FIRST PACK OF RBC STARTED, IV SITE TO RIGHT AC, 20GA, PT TOLERATED WELL. PT'S BROTHER AT BEDSIDE, EXPLAINED THE PROCEDURE.
[2017-06-06 16:00] VITALS: BP 125/53
[2017-06-06] MEDS: FERRIC GLUCONATE 125 MG in NACL 0.9% 100 ML IV SCH (16:23)
[2017-06-06] MEDS: METOCLOPRAMIDE 10 MG TAB PO SCH (16:45)
--- NOTE | 2017-06-06 17:55 | NUR ---
FIRST BAG OF RBC COMPLETED, NO ADVERSE EFFECTS NOTED.
--- NOTE | 2017-06-06 18:12 | NUR ---
2ND BAG OF RBC STARTED, VSS, NO S/S OF DISTRESS, NO FEVER.
--- NOTE | 2017-06-06 19:09 | NUR ---
REPORT GIVEN TO LEATHER SEASONER NURSE AT BEDSIDE FOR CONTINUE OF CARE, PT IS IN STABLE CONDITION AT THIS TIME.
--- NOTE | 2017-06-06 19:10 | NUR ---
RECEIVED PT SLEEPING, EASILY AROUSABLE, PRESENTLY GETTING 2ND UNIT PRBC, VITAL SIGNS STABLE, NO RESP DISTRESS NOTED, SAFETY MEASURES IN PLACE, SIDE RAILS UP AND BED ALARM ON, CALL LIGHT WITHIN REACH.
[2017-06-06 20:00] VITALS: BP 131/59
[2017-06-06] MEDS: NORTRIPTYLINE 10 MG CAP PO SCH (20:47)
[2017-06-06] MEDS: GABAPENTIN 100 MG CAP PO SCH (20:47)
[2017-06-06] MEDS: LACTULOSE 20 GM/30 ML UDC PO SCH (20:48)
--- NOTE | 2017-06-06 20:55 | NUR ---
BLOOD SUGAR CHECKED WITH 259 RESULT, COVERAGE GIVEN, DUE PO MEDS GIVEN WITH APPLE JUICE, TOLERATED WELL, REPOSITIONED Q2H AND OFFLOAD PRESSURE AREAS, ALL NEEDS ATTENDED.
[2017-06-06] MEDS ORDERED: FUROSEMIDE 40 MG/4 ML VIAL IVP PRN (21:00)
--- NOTE | 2017-06-06 21:10 | NUR ---
2ND UNIT OF PRBC FINISHED, NO REACTION NOTED, BP-148/62, DR DELAROSA PAGED AND MADE AWARE, WITH NEW ORDERS, 3RD UNIT PRBC STARTED, MONITORED FOR REACTION, VITAL SIGNS PER PROTOCOL, MONITORED CLOSELY.
--- NOTE | 2017-06-06 22:30 | NUR ---
BM WITH LOOSE BLACK STOOL MODERATE AMOUNT, PERINEAL CARE DONE.
[2017-06-07] VITALS: BP 123/52
--- NOTE | 2017-06-07 00:10 | NUR ---
3RD UNIT PRBC DONE, VITAL SIGNS STABLE, NO REACTION NOTED, 4TH UNIT PRBC STARTED, MONITORED CLOSELY.
--- NOTE | 2017-06-07 02:40 | NUR ---
4TH UNIT PRBC DONE, NO SIGNS OF REACTION NOTED, VITAL SIGNS STABLE, PT AROUSABLE TO TOUCH, DENIES ANY PAIN, NO SOB NOTED, PT ASKING IF SHE CAN DRINK, REINFORCED NPO STATUS, RESUMED IVF WITH NS AT 100ML/H, MONITORED CLOSELY.
[2017-06-07 04:00] VITALS: BP 129/61
[2017-06-07] MEDS: NACL 0.9% 1,000 ML IV SCH (04:10)
[2017-06-07] MEDS: INSULIN LISPRO SLIDING SCALE 100 UNITS/ML VIAL SUBQ PRN ×2 (05:46→12:51)
--- NOTE | 2017-06-07 05:50 | NUR ---
BM WITH LARGE LOOSE BLACK STOOL, PERINEAL CARE DONE, BLOOD SUGAR CHECKED WITH 202 RESULT, COVERAGE GIVEN, IVF INFUSING WELL, NO DISTRESS NOTED, MONITORED CLOSELY.
[2017-06-07] MEDS: METOCLOPRAMIDE 10 MG TAB PO SCH ×3 (06:38→17:25)
[2017-06-07] MEDS: BLOOD GLUCOSE MONITORING 1 DEV DEV FS SCH ×4 (06:41→20:20)
[2017-06-07 07:19] LABS: HEMATOCRIT 35.1 % (36-48); HEMOGLOBIN 11.9 g/dL (12.0-16.0); MEAN CORPUSCULAR HEMOGLOBIN 31 pg (27-31); MEAN CORPUSCULAR HGB CONC 34 g/dL (33-37); MEAN CORPUSCULAR VOLUME 91 fL (80-94); PLATELET COUNT (AUTO) 226 K/uL (140-450); RED BLOOD CELL COUNT(AUTO) 3.85 MIL/uL (4.20-5.40); RED CELL DISTRIBUTION WIDTH 14.4 % (11.6-13.7); WHITE BLOOD COUNT (AUTO) 20.8 K/uL (4.8-10.8)
[2017-06-07 07:23] LABS: ANION GAP 15.5 (8-16); CARBON DIOXIDE 22.4 mmol/L (21-32); CHLORIDE 116 mmol/L (98-107); CREATININE 1.6 mg/dL (0.6-1.3); GLUCOSE 228 mg/dL (74-106); POTASSIUM 3.9 mmol/L (3.5-5.1); SODIUM SERUM 150 mmol/L (136-145)
--- NOTE | 2017-06-07 07:27 | NUR ---
PT AWAKE, NO DISTRESS NOTED, BEDSIDE REPORT GIVEN TO RN LO FOR CONTINUITY OF CARE.
--- NOTE | 2017-06-07 07:28 | NUR ---
RECEIVED REPORT AT BEDSIDE FOR CONTINUITY OF CARE FROM CURB HOP NURSE. PATIENT RESTING, EASILY AROUSABLE, RESPIRATIONS EVEN AND UNLABORED. NO RESP DISTRESS NOTED, IV TO R FA INFUSING IVF WELL. SAFETY MEASURES IN PLACE, SIDE RAILS UP AND BED ALARM ON, BED ON LOWEST SETTING, CALL LIGHT WITHIN REACH, WILL CONTINUE TO MONITOR PATIENT.
[2017-06-07 07:36] LABS: UREA NITROGEN, BLOOD 77 mg/dL (7-18)
[2017-06-07 08:00] VITALS: BP 125/74
[2017-06-07 08:01] LABS: LYMPHOCYTES % (MANUAL) 3 % (20-46); MONOCYTES % (MANUAL) 4 % (5-12)
[2017-06-07] MEDS: INSULIN LANTUS 100 UNITS/ML 10 ML VIAL SUBQ SCH (09:49)
[2017-06-07] MEDS: LACTULOSE 20 GM/30 ML UDC PO SCH (09:51)
[2017-06-07] MEDS: SUCRALFATE 1 GM TAB PO SCH ×4 (09:51→20:10)
[2017-06-07] MEDS: ALLOPURINOL 100 MG TAB PO SCH (09:51)
[2017-06-07] MEDS: PANTOPRAZOLE 40 MG INJ VIAL IVP SCH (09:52)
--- NOTE | 2017-06-07 09:52 | NUR ---
ADMINISTERED ORDERED MEDICATIONS, PATIENT TOLERATED THEM WELL. PATIENT RESTING IN BED, NO SIGNS OF DISTRESS NOTED. PATIENT DENIES PAIN. SAFETY PRECAUTION IN PLACE, CALL LIGHT WITHIN REACH. WILL CONTINUE TO MONITOR PATIENT.
[2017-06-07] MEDS: NACL 0.45% 1,000 ML IV SCH ×2 (09:56→19:02)
[2017-06-07 12:00] VITALS: BP 155/63
--- NOTE | 2017-06-07 12:52 | NUR ---
ADMINISTERED ORDERED MEDICATIONS, PATIENT TOLERATED THEM WELL. BLOOD SUGAR 227, COVERAGE GIVEN. PATIENT RESTING IN BED, FAMILY AT BEDSIDE NO SIGNS OF DISTRESS NOTED. PATIENT DENIES PAIN. SAFETY PRECAUTION IN PLACE, CALL LIGHT WITHIN REACH. WILL CONTINUE TO MONITOR PATIENT.
--- NOTE | 2017-06-07 12:56 | NUR ---
CM NOTE PRISCILLA W/ TRACE[facility] PRO FOR [facility] (C: [phone]) RE. SNF PLACEMENT.
--- NOTE | 2017-06-07 13:14 | NUR ---
CM NOTE CONCURRENT REVIEW FAXED TO [facility] / FAX# [phone], ATTN: [employer] #[phone]
[2017-06-07] MEDS: guaiFENesin DM 200/20 MG-10 ML 10 ML UDC PO PRN (15:17)
--- NOTE | 2017-06-07 15:17 | NUR ---
PATIENT COUGHING INTERMITTENCY, REQUESTED PRN ROBITUSSIN. PRN MEDICATION ADMINISTERED ORDERED. PATIENT TOLERATED IT WELL. PATIENT RESTING IN BED, NO SIGNS OF DISTRESS NOTED. PATIENT DENIES PAIN. SAFETY PRECAUTION IN PLACE, CALL LIGHT WITHIN REACH. WILL CONTINUE TO MONITOR PATIENT.
[2017-06-07] MEDS: FERRIC GLUCONATE 125 MG in NACL 0.9% 100 ML IV SCH (15:44)
[2017-06-07 16:00] VITALS: BP 123/53
--- NOTE | 2017-06-07 16:15 | NUR ---
DR. SHEEHAN CAME TO SEE THE PATIENT. WILL AWAIT NEW ORDERS.
--- NOTE | 2017-06-07 16:30 | NUR ---
PATIENT RESTING IN BED, NO SIGNS OF DISTRES OR SOB NOTED. SAFETY PRECAUTION IN PLACE, CALL LIGHT WITHIN REACH, WILL CONTINUE TO MONITOR PATIENT.
--- NOTE | 2017-06-07 19:25 | NUR ---
REPORT GIVEN AT BEDSIDE FOR CONTINUITY OF CARE TO PANEL RAISER OPERATOR RN. PATIENT IN STABLE CONDITION.
--- NOTE | 2017-06-07 19:26 | NUR ---
PATIENT REPORT RECEIVED FROM MORNING NURSE AT BEDSIDE. PATIENT IS ASLEEP, BUT EASY TO AROUSE. NO SIGNS AND SYMPTOMS OF DISTRESS NOTED. BREATHING EVEN AND UNLABORED. PATIENT IS ON ROOM AIR. IV SITE NOTED ON RIGHT FOREARM, IVF INFUSING WELL. STEPHENS CATHETER IN PLACE DRAINING YELLOW URINE. BED IN LOWEST POSITION, SIDE RAILS UP AND CALL LIGHT WITHIN REACH. WILL CONTINUE TO MONITOR.
[2017-06-07 20:00] VITALS: BP 142/58
[2017-06-07] MEDS: NORTRIPTYLINE 10 MG CAP PO SCH (20:10)
[2017-06-07] MEDS: GABAPENTIN 100 MG CAP PO SCH (20:10)
[2017-06-07] MEDS ORDERED: LEVOFLOXACIN 500 MG/D5W PREMIX 100 ML IV SCH (21:10)
--- NOTE | 2017-06-07 22:00 | NUR ---
PATIENT HAD A BOWEL MOVEMENT. STOOL WAS BLACK AND MODERATE IN AMOUNT. PERICARE DONE. PATIENT TOLERATED WELL. WILL CONTINUE TO MONITOR.
[2017-06-08] VITALS: BP 132/60
[2017-06-08 04:00] VITALS: BP 130/62
--- NOTE | 2017-06-08 04:00 | NUR ---
CHECKED ON PATIENT, PATIENT IS ASLEEP. NO SIGNS AND SYMPTOMS OF DISTRESS NOTED. BREATHING EVEN AND UNLABORED. WILL CONTINUE TO MONITOR.
[2017-06-08 04:02] LABS: APPEARANCE,URINE SL CLOUDY (CLEAR); BILIRUBIN,URINE NEGATIVE (NEGATIVE); BLOOD, URINE 1+ (NEGATIVE); COLOR,URINE YELLOW (YELLOW); LEUKOCYTE ESTERASE ,URINE NEGATIVE (NEGATIVE); NITRITE, URINE NEGATIVE (NEGATIVE); UGLUCOSE NEGATIVE (NEGATIVE)
[2017-06-08 05:34] LABS: RBC,URINE 0-5 (RARE) /HPF (0-5); WBC,URINE NONE SEEN /HPF (0-5)
[2017-06-08] MEDS: NACL 0.45% 1,000 ML IV SCH (06:09)
[2017-06-08] MEDS: BLOOD GLUCOSE MONITORING 1 DEV DEV FS SCH ×4 (06:33→20:25)
[2017-06-08] MEDS: METOCLOPRAMIDE 10 MG TAB PO SCH ×3 (06:52→17:09)
[2017-06-08 06:56] LABS: HEMATOCRIT 29.5 % (36-48); HEMOGLOBIN 9.9 g/dL (12.0-16.0); MEAN CORPUSCULAR HEMOGLOBIN 31 pg (27-31); MEAN CORPUSCULAR HGB CONC 34 g/dL (33-37); MEAN CORPUSCULAR VOLUME 92 fL (80-94); PLATELET COUNT (AUTO) 201 K/uL (140-450); RED BLOOD CELL COUNT(AUTO) 3.22 MIL/uL (4.20-5.40); RED CELL DISTRIBUTION WIDTH 14.1 % (11.6-13.7); WHITE BLOOD COUNT (AUTO) 17.5 K/uL (4.8-10.8)
--- NOTE | 2017-06-08 07:05 | NUR ---
PATIENT REPORT GIVEN TO MORNING NURSE AT BEDSIDE FOR CONTINUITY OF CARE. PATIENT IS IN STABLE CONDITION
--- NOTE | 2017-06-08 07:06 | NUR ---
RECEIVED REPORT AT BEDSIDE FOR CONTINUITY OF CARE FROM LOAN SERVICING SPECIALIST NURSE. PATIENT RESTING, EASILY AROUSABLE, RESPIRATIONS EVEN AND UNLABORED. NO RESP DISTRESS NOTED, IV TO R FA INFUSING IVF WELL. SAFETY MEASURES IN PLACE, SIDE RAILS UP AND BED ALARM ON, BED ON LOWEST SETTING, CALL LIGHT WITHIN REACH, WILL CONTINUE TO MONITOR PATIENT.
[2017-06-08 07:15] LABS: ALBUMIN 1.6 g/dL (3.4-5.0); ANION GAP 12.6 (8-16); ASPARTATE AMINOTRANSFERASE 22 U/L (15-37); CARBON DIOXIDE 22.5 mmol/L (21-32); CHLORIDE 110 mmol/L (98-107); CREATININE 1.2 mg/dL (0.6-1.3); GLUCOSE 135 mg/dL (74-106); POTASSIUM 3.1 mmol/L (3.5-5.1); SODIUM SERUM 142 mmol/L (136-145); TOTAL BILIRUBIN 0.3 mg/dL (0.0-1.0); UREA NITROGEN, BLOOD 40 mg/dL (7-18)
[2017-06-08 07:50] LABS: EOSINOPHILS % (MANUAL) 2 % (0-4); LYMPHOCYTES % (MANUAL) 8 % (20-46); MONOCYTES % (MANUAL) 2 % (5-12)
[2017-06-08 08:00] VITALS: BP 144/57
--- NOTE | 2017-06-08 08:40 | NUR ---
PHYSICAL THERAPY IN WITH PATIENT. WILL AWAIT THEIR RESULTS.
[2017-06-08] MEDS ORDERED: POTASSIUM CHLORIDE 20% 40 MEQ/15 ML UDC PO SCH (09:00)
[2017-06-08] MEDS: INSULIN LANTUS 100 UNITS/ML 10 ML VIAL SUBQ SCH (09:00)
[2017-06-08] MEDS: PANTOPRAZOLE 40 MG INJ VIAL IVP SCH (09:39)
[2017-06-08] MEDS: LACTULOSE 20 GM/30 ML UDC PO SCH (09:40)
[2017-06-08] MEDS: SUCRALFATE 1 GM TAB PO SCH ×4 (09:40→20:27)
[2017-06-08] MEDS: ALLOPURINOL 100 MG TAB PO SCH (09:40)
--- NOTE | 2017-06-08 09:40 | NUR ---
ORDERED MEDICATIONS ADMINISTERED. PATIENT TOLERATED THEM WELL. PATIENT RESTING IN BED, BREATHING EVEN AND UNLABORED. DENIES PAIN AT THIS TIME. SAFETY PRECAUTION IN PLACE, CALL LIGHT WITHIN REACH, WILL CONTINUE TO MONITOR PATIENT.
[2017-06-08] MEDS: POTASSIUM CHL 20 MEQ/ 1/2 NS 1,000 ML IV SCH ×2 (09:59→20:02)
--- NOTE | 2017-06-08 10:15 | NUR ---
PATIENT RESTING IN BED, BREATHING EVEN AND UNLABORED. DENIES PAIN AT THIS TIME. SAFETY PRECAUTION IN PLACE, CALL LIGHT WITHIN REACH, WILL CONTINUE TO MONITOR PATIENT.
[2017-06-08 12:00] VITALS: BP 157/65
--- NOTE | 2017-06-08 12:15 | NUR ---
CM NOTE SPOKE W/ [facility] FOR [facility]. PROVIDED W/ LIST OF CONTRACTED SNFS: - [facility] - [facility] - [facility] - [facility] - [facility]
--- NOTE | 2017-06-08 13:36 | NUR ---
ORDERED MEDICATIONS ADMINISTERED. PATIENT TOLERATED THEM WELL. PATIENT RESTING IN BED, BREATHING EVEN AND UNLABORED. DENIES PAIN AT THIS TIME. SAFETY PRECAUTION IN PLACE, CALL LIGHT WITHIN REACH, WILL CONTINUE TO MONITOR PATIENT. Addendum: 06/08/17 at 1401 by Tray Cortez RN PATIENT HAD A BOWEL MOVEMENT. FORMED, SOFT TARRY STOOL. PATIENT CLEANED UP AND CHANGED. REPOSITIONED FOR COMFORT AND TO OFFLOAD PRESSURE AREAS.
--- NOTE | 2017-06-08 13:54 | NUR ---
REPORT GIVEN AT BEDSIDE TO RANGEL PEDROZA, FOR CONTINUITY OF CARE. PATIENT IS IN STABLE CONDITION.
--- NOTE | 2017-06-08 13:55 | NUR ---
RECEIVED PT REPORT FROM RANGEL BLANCHARD. PT IS SLEEPING AT THIS TIME.BREATHING EVEN AND UNLABORED. WILL CONTINUE TO MONITOR.
[2017-06-08] MEDS: FERRIC GLUCONATE 125 MG in NACL 0.9% 100 ML IV SCH (15:22)
--- NOTE | 2017-06-08 15:23 | NUR ---
PT'S WRIST BAND DIDN'T SCAN, ERROR MESSAGE INVALID BARCODE NUMBER. VERIFIED PT'S BIRTHDAY AND NAME. ORDERED MED GIVEN.
--- NOTE | 2017-06-08 15:27 | NUR ---
CM NOTE CONCURRENT REVIEW FAXED TO [facility] / FAX# [phone], ATTN: INOCENCIA #[phone]
--- NOTE | 2017-06-08 15:34 | NUR ---
06/08/17 RD FOLLOW UP COMPLETED. PLEASE REFER TO NUTRITION ASSESSMENT UNDER CARE ACTIVITY FOR ESTIMATED NUTRITIONAL NEEDS. CONTINUE ANTIHYPERGLYCEMIC MEDS FOR GLUCOSE CONTROL. MAY CONSIDER CCHO DIET IF PO ITNAKE INCREASE TO >75% DIETARY WILL PROVIDE CHOPPED FOOD PER PT REQUEST. RD TO FOLLOW-UP IN 2-3 DAYS PATIENT IS HIGH RISK. MALI BARROS RD
[2017-06-08 16:00] VITALS: BP 158/66
--- NOTE | 2017-06-08 16:00 | NUR ---
C-DIFF CULTURE SENT TO THE LAB.
--- NOTE | 2017-06-08 17:30 | NUR ---
PT EATING DINNER. NO S/S OF ACUTE DISTRESS. CONSENT FOR EGD SIGNED BY PT.
--- NOTE | 2017-06-08 19:30 | NUR ---
ENDORSED PT TO BABBITT SPINNER RN, PT IN STABLE CONDITION.
[2017-06-08 20:00] VITALS: BP 149/62
[2017-06-08] MEDS: GABAPENTIN 100 MG CAP PO SCH (20:26)
[2017-06-08] MEDS: NORTRIPTYLINE 10 MG CAP PO SCH (20:26)
[2017-06-08] MEDS: DIAZEPAM 2 MG TAB PO PRN (20:27)
--- NOTE | 2017-06-08 21:45 | NUR ---
PATIENT HAD A BOWEL MOVEMENT IN BED. STOOL WAS LIQUID, BLACK AND MODERATE IN AMOUNT. PERICARE DONE. PATIENT TOLERATED WELL. PATIENT REPOSITIONED FOR COMFORT. WILL CONTINUE TO MONITOR.
[2017-06-08] MEDS: LEVOFLOXACIN 250 MG/D5 PREMIX 50 ML IV SCH (22:30)
[2017-06-09] VITALS: BP 137/60
--- NOTE | 2017-06-09 | NUR ---
CHECKED ON PATIENT. PATIENT IS ASLEEP. NO SIGNS AND SYMPTOMS OF DISTRESS NOTED. BREATHING EVEN AND UNLABORED. WILL CONTINUE TO MONITOR.
[2017-06-09 04:00] VITALS: BP 129/65
[2017-06-09] MEDS: POTASSIUM CHL 20 MEQ/ 1/2 NS 1,000 ML IV SCH (05:45)
[2017-06-09] MEDS: BLOOD GLUCOSE MONITORING 1 DEV DEV FS SCH ×4 (06:35→20:04)
[2017-06-09] MEDS: METOCLOPRAMIDE 10 MG TAB PO SCH ×3 (06:36→17:11)
[2017-06-09 07:09] LABS: ANION GAP 15.2 (8-16); CARBON DIOXIDE 20.3 mmol/L (21-32); CHLORIDE 109 mmol/L (98-107); CREATININE 1.1 mg/dL (0.6-1.3); GLUCOSE 138 mg/dL (74-106); POTASSIUM 3.5 mmol/L (3.5-5.1); SODIUM SERUM 141 mmol/L (136-145); UREA NITROGEN, BLOOD 24 mg/dL (7-18)
--- NOTE | 2017-06-09 07:30 | NUR ---
PATIENT REPORT GIVEN TO MORNING NURSE AT BEDSIDE FOR CONTINUITY OF CARE. PATIENT IS IN STABLE CONDITION.
--- NOTE | 2017-06-09 07:30 | NUR ---
RECEIVED REPORT AT BEDSIDE FROM THERAPEUTIC STRATEGY LEAD NURSE. PATIENT AAOX3, SLEEPING, EASILY AROUSED, RESPIRATIONS EVEN AND UNLABORED ON ROOM AIR. NO ACUTE DISTRESS NOTED, IV NOTED TO THE R FA INFUSING WELL, ASYMPTOMATIC. EXPLAINED PT IS HAVING EDG TODAY, PT VERBALIZED UNDERSTANDING. SAFETY MEASURES IN PLACE, BED ALARM ON, BED IN LOWEST SETTING, CALL LIGHT WITHIN REACH, WILL CONTINUE TO MONITOR.
[2017-06-09 08:00] VITALS: BP 159/69
[2017-06-09] MEDS: SUCRALFATE 1 GM TAB PO SCH ×4 (08:21→20:09)
[2017-06-09] MEDS: LACTULOSE 20 GM/30 ML UDC PO SCH (08:21)
[2017-06-09] MEDS: ALLOPURINOL 100 MG TAB PO SCH (08:21)
[2017-06-09] MEDS: INSULIN LANTUS 100 UNITS/ML 10 ML VIAL SUBQ SCH (08:31)
[2017-06-09] MEDS: PANTOPRAZOLE 40 MG INJ VIAL IVP SCH (08:31)
--- NOTE | 2017-06-09 08:32 | NUR ---
PT IS GOING FOR EGD TODAY, NPO SINCE MIDNIGHT. LANTUS IS NOT GIVEN DUE TO CONCERN OF HYPOGLYCEMIA.
[2017-06-09 09:01] LABS: WHITE BLOOD COUNT (AUTO) 15.3 K/uL (4.8-10.8)
[2017-06-09 09:12] LABS: HEMATOCRIT 28.2 % (36-48); HEMOGLOBIN 9.6 g/dL (12.0-16.0); MEAN CORPUSCULAR HEMOGLOBIN 31 pg (27-31); MEAN CORPUSCULAR HGB CONC 34 g/dL (33-37); MEAN CORPUSCULAR VOLUME 92 fL (80-94); PLATELET COUNT (AUTO) 168 K/uL (140-450); RED BLOOD CELL COUNT(AUTO) 3.07 MIL/uL (4.20-5.40); RED CELL DISTRIBUTION WIDTH 15.5 % (11.6-13.7)
[2017-06-09 09:13] LABS: BASOPHILS % (AUTO) 0.1 % (0.0-2.0); EOSINOPHILS # (AUTO) 0.1 K/uL (0-0.4); LYMPHOCYTES # (AUTO) 1.2 K/uL (2.5-16.5); LYMPHOCYTES % (AUTO) 7.9 % (20.5-51.1); MONOCYTES # (AUTO) 0.7 K/uL (0.8-1.0); MONOCYTES % (AUTO) 4.3 % (1.7-9.3); NEUTROPHILS # (AUTO) 13.3 K/uL (1.8-7.7); NEUTROPHILS % (AUTO) 86.7 % (42.2-75.2)
--- NOTE | 2017-06-09 09:30 | NUR ---
NOTIFIED DR DELAROSA ABOUT HIGH BLOOD PRESSURE. DR DELAROSA STATED CALL HIM AFTER THE EDG WITH RESULT AND LATEST VITALS.
[2017-06-09] MEDS ORDERED: fentaNYL 0.05 MG/ML VIAL ONE (10:48)
[2017-06-09] MEDS ORDERED: MIDAZOLAM 2 MG/2 ML VIAL ONE ×2 (10:49)
[2017-06-09] MEDS ORDERED: diphenhydrAMINE 50 MG/ML VIAL ONE (10:49)
--- NOTE | 2017-06-09 11:55 | NUR ---
PT WAS TAKEN TO OR FOR EGD. PT IS IN STABLE CONDITION.
[2017-06-09] MEDS ORDERED: fentaNYL 0.05 MG/ML VIAL IVP SCH (13:29)
[2017-06-09 13:30] VITALS: BP 162/69
[2017-06-09] MEDS ORDERED: MIDAZOLAM 2 MG/2 ML VIAL IVP SCH (13:30)
--- NOTE | 2017-06-09 13:55 | NUR ---
PT IS BACK FROM OR. RECONNECT PT TO IV. BLOOD SUGAR TAKEN. VITALS TAKEN. CALLED DR DELAROSA. REPORTED RESULT OF EGD AND VITALS TO DR DELAROSA. ORDERS HAS BEEN RECEIVED. IS AWARE OF EGD RESULTS.
[2017-06-09] MEDS ORDERED: amLODIPine 5 MG TAB PO SCH (14:00)
[2017-06-09] MEDS: FERRIC GLUCONATE 125 MG in NACL 0.9% 100 ML IV SCH (15:20)
--- NOTE | 2017-06-09 15:47 | NUR ---
FAXED CONCURRENT REVIEW TO [facility] [phone] PHONE INOCENCIA [phone]. I SPOKE WITH INOCENCIA ABOUT THE SNF. SHE SAID SHE GOT A BED AT [facility] IN [place]. SHE WILL GO TO ROOM [address] Carie GUTIÉRREZ. FOR TRANSPORT, USE [facility] [id number]. PLAN DISCHARGE TOMORROW.
[2017-06-09 16:00] VITALS: BP 139/57
[2017-06-09] MEDS: INSULIN LISPRO SLIDING SCALE 100 UNITS/ML VIAL SUBQ PRN ×2 (18:19→20:14)
--- NOTE | 2017-06-09 18:29 | NUR ---
[facility] AT [facility]. ON WEEKEND, CM IS SANJU GAYLE CELL IS [phone].
--- NOTE | 2017-06-09 19:30 | NUR ---
ENDORSED PT TO DEFENSIVE LINE COACH RN, PT IN STABLE CONDITION.
--- NOTE | 2017-06-09 19:31 | NUR ---
PATIENT REPORT RECEIVED FROM MORNING NURSE AT BEDSIDE. PATIENT IS ASLEEP, RESTING COMFORTABLY IN BED BUT EASY TO AROUSE. NO SIGNS AND SYMPTOMS OF DISTRESS NOTED. BREATHING EVEN AND UNLABORED. PATIENT IS ON ROOM AIR. IV SITE NOTED ON RIGHT FOREARM, IVF INFUSING WELL. STEPHENS CATHETER IN PLACE DRAINING YELLOW URINE. BED IN LOWEST POSITION, SIDE RAILS UP AND CALL LIGHT WITHIN REACH. WILL CONTINUE TO MONITOR.
[2017-06-09 20:00] VITALS: BP 123/60
[2017-06-09] MEDS: GABAPENTIN 100 MG CAP PO SCH (20:09)
[2017-06-09] MEDS: NORTRIPTYLINE 10 MG CAP PO SCH (20:09)
--- NOTE | 2017-06-09 21:30 | NUR ---
MEDICATION EDUCATION GIVEN. PATIENT VERBALIZED UNDERSTANDING. MEDICATION ADMINISTERED ORDERED. PATIENT TOLERATED WELL. WILL CONTINUE TO MONITOR.
[2017-06-09] MEDS: LEVOFLOXACIN 250 MG/D5 PREMIX 50 ML IV SCH (21:46)
[2017-06-10] VITALS: BP 118/75
--- NOTE | 2017-06-10 | NUR ---
PATIENT IS ASLEEP. NO SIGNS AND SYMPTOMS OF DISTRESS NOTED. BREATHING EVEN AND UNLABORED. BED IN LOWEST POSITION, SIDE RAILS UP AND CALL LIGHT WITHIN REACH. WILL CONTINUE TO MONITOR.
[2017-06-10] MEDS: POTASSIUM CHL 20 MEQ/ 1/2 NS 1,000 ML IV SCH (00:51)
--- NOTE | 2017-06-10 03:00 | NUR ---
PATIENT IS ASLEEP. NO SIGNS AND SYMPTOMS OF DISTRESS NOTED. BREATHING EVEN AND UNLABORED. WILL CONTINUE TO MONITOR.
[2017-06-10 05:00] VITALS: BP 134/70
[2017-06-10] MEDS: BLOOD GLUCOSE MONITORING 1 DEV DEV FS SCH ×2 (06:40→12:15)
[2017-06-10] MEDS: METOCLOPRAMIDE 10 MG TAB PO SCH (06:42)
[2017-06-10 06:47] LABS: HEMATOCRIT 29.3 % (36-48); HEMOGLOBIN 9.8 g/dL (12.0-16.0); MEAN CORPUSCULAR HEMOGLOBIN 31 pg (27-31); MEAN CORPUSCULAR HGB CONC 33 g/dL (33-37); MEAN CORPUSCULAR VOLUME 92 fL (80-94); PLATELET COUNT (AUTO) 215 K/uL (140-450); RED CELL DISTRIBUTION WIDTH 14.4 % (11.6-13.7); WHITE BLOOD COUNT (AUTO) 14.1 K/uL (4.8-10.8)
[2017-06-10] MEDS: INSULIN LISPRO SLIDING SCALE 100 UNITS/ML VIAL SUBQ PRN (07:00)
--- NOTE | 2017-06-10 07:30 | NUR ---
PATIENT REPORT GIVEN TO MORNING NURSE AT BEDSIDE. PATIENT IS IN STABLE CONDITION.
--- NOTE | 2017-06-10 07:31 | NUR ---
RECEIVED REPORT FROM THE BOTTLING LINE ATTENDANT NURSE AT BEDSIDE FOR CONTINUITY OF CARE. PT IS AWAKE AND ORIENTED. INTRODUCED MYSELF AND UPDATED THE BOARD. V/S WITHIN NORMAL LIMITS. DENIES PAIN. IV ON R FA 22G 1/2 NS KCL 20MEQ, INFUSING AT 70ML/HR. PT TOLERATING WELL. F/C IN PLACE, CLEAR YELLOW URINE. DR. DELAROSA IS HERE TO ASSESS PT. PER MD, PT WILL GO TO SNF FOR P/T AND CONTINUED ABX. WILL START D/C PROCESS. WILL CONTINUE TO MONITOR PT.
[2017-06-10 07:34] LABS: ANION GAP 12.1 (8-16); CARBON DIOXIDE 24.6 mmol/L (21-32); CHLORIDE 107 mmol/L (98-107); GLUCOSE 180 mg/dL (74-106); POTASSIUM 3.7 mmol/L (3.5-5.1); SODIUM SERUM 140 mmol/L (136-145); UREA NITROGEN, BLOOD 18 mg/dL (7-18)
[2017-06-10 08:00] VITALS: BP 149/62
--- NOTE | 2017-06-10 08:22 | NUR ---
PER CHARGE NURSE, PT IS TO TRANSFERRED TO [facility] IN [place], BED [address] UNDER DR. Cira GUTIÉRREZ. CHARGE NURSE WILL CALL [facility] FOR TRANSPORT. WILL CALL FACILITY AND GIVE REPORT.
[2017-06-10] MEDS: ALLOPURINOL 100 MG TAB PO SCH (08:33)
[2017-06-10] MEDS: SUCRALFATE 1 GM TAB PO SCH (08:34)
[2017-06-10] MEDS: PANTOPRAZOLE 40 MG INJ VIAL IVP SCH (08:35)
[2017-06-10] MEDS: INSULIN LANTUS 100 UNITS/ML 10 ML VIAL SUBQ SCH (08:41)
--- NOTE | 2017-06-10 08:45 | NUR ---
STUDENT RN AND INSTRUCTOR GAVE MORNING MEDS. PT TOLERATED WELL. WILL CONTINUE TO MONITOR PT.
[2017-06-10] MEDS: LACTULOSE 20 GM/30 ML UDC PO SCH (09:00)
[2017-06-10] MEDS ORDERED: amLODIPine 5 MG TAB PO SCH (09:00)
[2017-06-10 09:31] LABS: LYMPHOCYTES % (MANUAL) 10 % (20-46); MONOCYTES % (MANUAL) 5 % (5-12)
--- NOTE | 2017-06-10 09:48 | NUR ---
[facility] [place] GAVE FULL REPORT. ANSWERED ALL QUESTIONS. WILL CONTINUE TO MONITOR PT.
[2017-06-10] MEDS ORDERED: LEVO500T98 PO (10:15)
--- NOTE | 2017-06-10 10:28 | NUR ---
TRIED CALLING [facility], BROTHER TO NOTIFY HIM OF TRANSFER TODAY. NO ANSWER, NO VM.
--- NOTE | 2017-06-10 11:30 | NUR ---
D/C'D STEPHENS CATH. TRIED TO STRAIGHT CATH PT FOR SAMPLE OF URINE PER DR. DUARTE'S ORDERS BUT UNABLE TO GET SAMPLE. D/C'S IV. CANNULA INTACT. NO BLEEDING NOTED. PT IS IN A TRANSPORT GOWN WITH [employer]. ALL PERSONAL BELONGINGS PACKED AND READY TO GO. GAVE DC INSTRUCTIONS GIVEN TO BROTHER. BROTHER SIGNED ALL D/C PAPERWORK. WILL RIDE WITH [facility] TO HER FACILITY. TELE MONITOR REMOVED. ID BANDS REMOVED.
--- NOTE | 2017-06-10 11:40 | NUR ---
[facility] HERE. REMOVED THE STEPHENS CATH AND IV. DC INSTRUCTIONS TO PT AND BROTHER. REPORT GIVEN TO TRANSPORTER.
--- NOTE | 2017-06-10 12:00 | NUR ---
[facility] TRANSPORTED PT OFF THE UNIT IN A WHEELCHAIR. PERSONAL BELONGINGS WITH PT. BROTHER ACCOMPANYING PT.
--- NOTE | 2017-06-10 12:05 | NUR ---
CALLED [facility]. NOTIFIED THEM THEY JUST LEFT. SPOKE TO RANGEL ABDALLA.
== END 2017-06-10 12:00 | DRG 871 ==
LOC: MED 09:03 → MTU 14:58
PROVIDERS: ADMIT Family Medicine; ATTEND Family Medicine
PROC: 0DB68ZX Excision of Stomach, Via Natural or Artificial Opening Endoscopic, Diagnostic (ICD-10-PCS; 2017-06-06)
PROC: 30233N1 Transfusion of Nonautologous Red Blood Cells into Peripheral Vein, Percutaneous Approach (ICD-10-PCS; principal; 2017-06-06 12:15)
PROC: 0DB78ZX Excision of Stomach, Pylorus, Via Natural or Artificial Opening Endoscopic, Diagnostic (ICD-10-PCS; 2017-06-09)
DX: A41.9 Sepsis, unspecified organism (principal); K25.4 Chronic or unspecified gastric ulcer with hemorrhage; N17.9 Acute kidney failure, unspecified; E11.22 Type 2 diabetes mellitus with diabetic chronic kidney disease; I50.9 Heart failure, unspecified; I13.0 Hypertensive heart and chronic kidney disease with heart failure and stage 1 through stage 4 chronic kidney disease, or unspecified chronic kidney disease; N39.0 Urinary tract infection, site not specified; E86.0 Dehydration; J20.9 Acute bronchitis, unspecified; B96.1 Klebsiella pneumoniae [K. pneumoniae] as the cause of diseases classified elsewhere; D50.0 Iron deficiency anemia secondary to blood loss (chronic); D63.1 Anemia in chronic kidney disease; E78.5 Hyperlipidemia, unspecified; K55.20 Angiodysplasia of colon without hemorrhage; N18.9 Chronic kidney disease, unspecified; K59.00 Constipation, unspecified; M10.9 Gout, unspecified; Z91.81 History of falling; Z85.3 Personal history of malignant neoplasm of breast; Z90.12 Acquired absence of left breast and nipple
CPT/HCPCS: 36415; 71045; 76700; 76770; 80048; 80053; 81001; 82550; 82553; 82948; 83605; 83690; 84484; 85018; 85025; 85610; 85730; 86677; 86886; 86900; 86901; 86920; 87040; 87070; 87081; 87086; 87186; 94640; 96365; 97110; 97116; 97140; 97530; 99285; C1758; C9113; J0692; J0696; J1200; J1815; J1956; J2250; J2916; J3010; J3480; J7030; J7060; J7620; J8597; P9016; Q0092